=== PATIENT | male | born 1990 | race Caucasian/White ===

== ENCOUNTER 2023-05-31 12:47 | Emergency (ER) | payer OTHER ==
[2023-05-31 13:05] VITALS: BP 166/88; PULSE 70; RESP 18; TEMP 97; O2SAT 99
--- NOTE | 2023-05-31 13:24 | ERPHSYRPT ---
- History of Present Illness Time Seen by Provider: 05/31/23 13:11 Source: patient Exam Limitations: no limitations Patient Subjective Stated Complaint: PT HERE FOR LEFT EYE TEARING,REDNESS TODAY. PT STATES EYE WAS MATTED WHEN HE WOKE UP Triage Nursing Assessment: PT ALERT,WALKED IN, RESP EASY, SKIN W/D/P, HAS REDNESS TEARING TO LEFT EYE Physician History: 33 years old male up-to-date with immunizations presented in the ER with chief complaint of left eye redness and tearing with feeling of irritation/burning sensation upon waking up this morning. Denies any foreign body sensation. Patient reports eyes Lids were matted shut this morning with yellow discharge. No discharge currently but tearing. Bright light makes it more worse. No known sick contact. Denies any trauma to the eyeball. Did not notice any corneal foreign body or abrasion. No pain. Has conjunctival injection. Started on Polytrim/Bactrim eyedrops. Outpatient follow-up recommended. Discussed signs symptoms of worsening needing return to ER which she seems understanding. Allergies/Adverse Reactions: No Known Drug Allergies Allergy (Unverified 05/31/23 12:57) Hx Tetanus, Diphtheria Vaccination/Date Given: Yes Hx Influenza Vaccination/Date Given: No Hx Pneumococcal Vaccination/Date Given: No Immunizations Up to Date: Yes Travel Risk - International Travel Have you traveled outside of the country in past 3 weeks: No - Coronavirus Screening Are you exhibiting any of the following symptoms?: No Close contact with a COVID-19 positive Pt in past 14-21 Days: No - Vaccine Status Have you recieved a Covid-19 vaccination: No - Review of Systems Constitutional: No Symptoms Eyes: Eye Redness, Itchy, Photophobia, Tearing, No Foreign Body Sensation Ears, Nose, & Throat: No Symptoms Respiratory: No Symptoms Cardiac: No Symptoms Abdominal/Gastrointestinal: No Symptoms Musculoskeletal: No Symptoms Skin: No Symptoms Neurological: No Symptoms Psychological: No Symptoms Endocrine: No Symptoms - Past Medical History Pertinent Past Medical History: No - Past Surgical History Past Surgical History: No - Social History Smoking Status: Never smoker Exposure to second hand smoke: No Drug Use: none Patient Lives Alone: Yes - Nursing Vital Signs Nursing Vital Signs: Initial Vital Signs Temperature 97.0 F 05/31/23 13:04 Pulse Rate 70 05/31/23 13:04 Respiratory Rate 18 05/31/23 13:04 Blood Pressure 166/88 05/31/23 13:04 O2 Sat by Pulse Oximetry 99 05/31/23 13:04 Pain Scale Pain Intensity 3 - Physical Exam General Appearance: no apparent distress Vision Acuity Degree Evaluation Phase: Uncorrected Vision Acuity Right Eye: 20/20 Vision Acuity Left Eye: 20/20 Eye Exam: right eye: normal inspection, left eye: conjunctival hemorrhage, conjunctival inflammation, bilateral eye: PERRL, EOMI Ears, Nose, Throat Exam: normal ENT inspection, TMs normal, pharynx normal, moist mucous membranes Neck Exam: normal inspection, supple, full range of motion Respiratory Exam: normal breath sounds, lungs clear Cardiovascular Exam: regular rate/rhythm, normal heart sounds Neurologic: brand lead II-XII nml as tested, sensation nml Skin Exam: normal color SpO2 Interpretation: normal SpO2: 99 O2 Delivery: Room Air - Progress Progress: unchanged Progress Note: 05/31/23 13:20 33 years old male up-to-date with immunizations presented in the ER with chief complaint of left eye redness and tearing with feeling of irritation/burning sensation upon waking up this morning. Denies any foreign body sensation. Patient reports eyes Lids were matted shut this morning with yellow discharge. No discharge currently but tearing. Bright light makes it more worse. No known sick contact. Denies any trauma to the eyeball. Did not notice any corneal foreign body or abrasion. No pain. Has conjunctival injection. Started on Polytrim/Bactrim eyedrops. Outpatient follow-up recommended. Discussed signs symptoms of worsening needing return to ER which she seems understanding. Counseled pt/family regarding: diagnosis, need for follow-up Medical Desision Making - Risk of complications The pt has a mod risk of morbidity or mortality based on: Need for prescription drug management - Departure Departure Disposition: Home Clinical Impression: Conjunctivitis Condition: Stable Critical Care Time: No Referrals: CLAIRE VELEZ [facility] [Primary Care Provider] - Follow up with PCP 1 day Instructions: Conjunctivitis (Pinkeye) (DC) Additional Instructions: Intermittent application of cool compresses. Tylenol/ibuprofen as needed. Follow-up with primary care/optometry or umbrella cutter for reevaluation in 1 to 2 days. Return to ER for any worsening. Prescriptions: Polymyxin B Sulf/Trimethoprim [Polytrim Eye Drops] 10 ml OP Q4H 7 Days #10 ml
== END 2023-05-31 13:43 | disposition home or self-care (01) ==
LOC: ED 12:47
DX: H10.9 Unspecified conjunctivitis (principal); H57.12 Ocular pain, left eye; Z28.310 Unvaccinated for COVID-19
CPT/HCPCS: 99281

== ENCOUNTER 2024-07-03 17:08 | Emergency (ER) | payer OTHER ==
[2024-07-03 18:27] VITALS: BP 168/87; PULSE 74; TEMP 96.8; O2SAT 98
[2024-07-03 18:28] LABS: Group A Strep NOT DETECTED (NEGATIVE)
[2024-07-03 18:39] LABS: INFLUENZA A NEGATIVE (NEGATIVE); INFLUENZA B NEGATIVE (NEGATIVE); RESPIRATORY SYNCTIAL VIRUS NEGATIVE (NEGATIVE); SARS-CoV-2 Xpert Express NEGATIVE (NEGATIVE)
--- NOTE | 2024-07-03 19:05 | ERPHSYRPT ---
- History of Present Illness Time Seen by Provider: 07/03/24 18:20 Source: patient Exam Limitations: no limitations Patient Subjective Stated Complaint: Cough Triage Nursing Assessment: Patient ambulated back to ED and sat in chair. Patient's skin pink, warm and dry. Patient complains of productive cough with thick yellow green sputum for one month. Lungs clear a/p jacque. Patient has been on 2 different antibiotics and steroids. Patient denies pain or discomfort. Physician History: This is a 34-year-old white male patient who has had coughing symptoms intermittently for the last 2 months. He has been on 2 different antibiotics and steroid treatments. Patient has had greenish sputum. He denies chest pain. He had denies shortness of breath. He does not have a fever. Timing/Duration: other (Since April) Cough Quality/Degree: mild, productive cough (Occasional greenish sputum) Possible Cause: occasional episodes Modifying Factors: Improves With: coughing Associated Symptoms: cough, nasal drainage, No chest pain/soreness, No earache, No muscle aches, No shortness of breath, No sinus infection, No sore throat Allergies/Adverse Reactions: No Known Drug Allergies Allergy (Verified 07/03/24 18:14) Home Medications: Losartan Potassium 1 tab PO DAILY 07/03/24 [History] armodafiniL [Nuvigil] 150 mg PO DAILY 07/03/24 [History] Hx Tetanus, Diphtheria Vaccination/Date Given: Yes Hx Influenza Vaccination/Date Given: No Hx Pneumococcal Vaccination/Date Given: No Immunizations Up to Date: Yes Travel Risk - International Travel Have you traveled outside of the country in past 3 weeks: No - Emerging Infectious Disease Are you exhibiting symptoms associated with any current EIDs: Yes Symptoms: Cough: New Onset - Review of Systems Constitutional: No Symptoms Eyes: No Symptoms Ears, Nose, & Throat: Nose Congestion, Nose Discharge Respiratory: Cough Cardiac: No Symptoms Abdominal/Gastrointestinal: No Symptoms Genitourinary Symptoms: No Symptoms Musculoskeletal: No Symptoms Skin: No Symptoms Neurological: No Symptoms Psychological: No Symptoms Endocrine: No Symptoms Hematologic/Lymphatic: No Symptoms Immunological/Allergic: No Symptoms All Other Systems: Reviewed and Negative - Past Medical History Pertinent Past Medical History: Yes Neurological History: No Pertinent History ENT History: No Pertinent History Cardiac History: Hypertension Respiratory History: No Pertinent History Endocrine Medical History: No Pertinent History Musculoskeletal History: No Pertinent History GI Medical History: No Pertinent History History: No Pertinent History Psycho-Social History: No Pertinent History Male Reproductive Disorders: No Pertinent History - Past Surgical History Past Surgical History: No - Social History Smoking Status: Never smoker Exposure to second hand smoke: No Drug Use: none Patient Lives Alone: Yes - Social Determinants of Health Will the patient participate in the screening: Yes Do you worry about a steady place to live?: No Do you have any problems with any of the following?: No known problems In the past 12 months,have you had to go without utilities?: No Transportation Issues: No Has anyone in your support network made you feel unsafe?: No Have you or anyone in your house had to go without enough: No - Nursing Vital Signs Nursing Vital Signs: Initial Vital Signs Temperature 96.8 F 07/03/24 18:16 Pulse Rate 74 07/03/24 18:16 Respiratory Rate 20 07/03/24 18:16 Blood Pressure 168/87 07/03/24 18:16 O2 Sat by Pulse Oximetry 98 07/03/24 18:16 Pain Scale Pain Intensity 0 - Physical Exam General Appearance: no apparent distress, alert Eye Exam: PERRL/EOMI, eyes nml inspection Ears, Nose, Throat Exam: normal ENT inspection, moist mucous membranes Neck Exam: normal inspection, non-tender, supple, full range of motion Respiratory Exam: normal breath sounds, lungs clear, airway intact, No chest tenderness, No respiratory distress Cardiovascular Exam: regular rate/rhythm, normal heart sounds, normal peripheral pulses Gastrointestinal/Abdomen Exam: soft, normal bowel sounds, No tenderness Rectal Exam: not done Back Exam: normal inspection, normal range of motion, No CVA tenderness, No vertebral tenderness Extremity Exam: normal inspection, normal range of motion, pelvis stable Neurologic Exam: alert, oriented x 3, cooperative, cut off man II-XII nml as tested, normal mood/affect, nml cerebellar function, nml station & gait, sensation nml Skin Exam: normal color, warm, dry Lymphatic Exam: No adenopathy SpO2 Interpretation: normal SpO2: 98 O2 Delivery: Room Air - Course Nursing assessment & vital signs reviewed: Yes Ordered Tests: Active Orders 24 hr Category Date Time Status CHEST 1 VIEW (PORTABLE) Stat Exams 07/03/24 17:44 Taken Lab/Rad Data: Laboratory Results 07/03/24 Range/Units 17:50 Influenza Type A Ag NEGATIVE (NEGATIVE) Influenza Type B Ag NEGATIVE (NEGATIVE) RSV (PCR) NEGATIVE (NEGATIVE) SARS-CoV-2 (PCR) NEGATIVE (NEGATIVE) Group A Strep Antibody NOT DETECTED (NEGATIVE) - Progress Progress: re-examined Air Movement: good Progress Note: 07/03/24 19:03 My medical decision making the assignment of low complexity to this patient's medical issue today is based on review of the patient's past medical history, review of patient medication list, reviewed patient drug allergy list, history present illness and physical findings on examination. Differential diagnosis includes but is not limited to viral illness, pneumonia The chest x-ray was interpreted by the radiologist and I reviewed the impression. The impression states normal chest x-ray Blood Culture(s) Obtained: No Antibiotics given: No Counseled pt/family regarding: lab results, diagnosis, need for follow-up, rad results Medical Desision Making - Independent Historian Additional History obtained from: Spouse - Diagnostic Testing Diagnostic test were ordered, analyzed, and reviewed by me: Yes Radiological Interpretation: Reviewed by me, Teleradiologist Report - Risk of complications Minimal Risk: Minimal risk of morbidity - Departure Departure Disposition: Home Clinical Impression: Bronchitis Condition: Stable Critical Care Time: No Referrals: REX DIMAS MD [Primary Care Provider] - Follow up/PCP as directed Additional Instructions: Drink plenty of fluids. Avoid any exposure to any type of smoke. Call the primary care provider tomorrow, 07/04/2024 to make arrangements for follow-up appointment to be seen in the next 3 to 5 days.
[2024-07-03 19:32] VITALS: RESP 18
--- NOTE | 2024-07-04 08:39 | XRAY ---
Indication: Cough. Comparison: January 24, 2022 Portable apical lordotic chest again demonstrates normal heart, lungs, and bony thorax.
== END 2024-07-03 19:30 | disposition home or self-care (01) ==
LOC: ED 17:08
DX: J40 Bronchitis, not specified as acute or chronic (principal); R05.9 Cough, unspecified
CPT/HCPCS: 0241U; 71045; 87651; 99284; 99283